=== PATIENT | male | born 1950 | race Caucasian/White ===

== ENCOUNTER → 2016-11-07 | Outpatient (CLI) | payer MEDICARE, MEDICAID, OTHER ==
[~2016-11-07] MED LIST: ASPIRIN 32325 MG/TAB PO; ASPIRIN E.C. 8181 MG PO; NITROSTAT0.4 MG/TAB SL; PERCOCET 325 MG1 TA2 PO; PLAVIX 75MG TAB75 MG PO; PREDNISONE10 MG PO; TENORMIN 2525 MG/TAB PO; TOPROL XL 50MG50 MG PO; TYLENOL 325MG325 MG PO; ULTRAM 50MG TAB50 MG PO; ZANTAC 150150 MG; ZANTAC 150MG T150 MG PO; ZESTRIL 5MG5 MG PO; ZITHROMAX Z PA250 MG PO; ZOCOR 20MG20 MG PO
== END ==
LOC: COL.RAD 08:47
DX: E05.90 Thyrotoxicosis, unspecified without thyrotoxic crisis or storm (principal); R63.4 Abnormal weight loss; G47.00 Insomnia, unspecified
CPT/HCPCS: A9516

== ENCOUNTER → 2016-11-24 | Outpatient (CLI) | payer MEDICARE, MEDICAID | LOC: COL.RAD 13:30 | DX: E04.1 Nontoxic single thyroid nodule (principal) ==